=== PATIENT | female | born 1990 | race Caucasian/White ===

== ENCOUNTER 2017-11-12 08:07 | Emergency (ER) | payer SELFPAY ==
[~2017-11-12 08:07] MED LIST: Sodium Chloride Irrig Solution 250 ML BOT ONE
[2017-11-12] MEDS ORDERED: Morphine 10 MG/ML VIAL ONE (08:33)
[2017-11-12] MEDS ORDERED: Lidocaine 1% 20 ML MDV ONE (08:33)
[2017-11-12] MEDS ORDERED: Triple Antibiotic Ointment 15 GM TUBE ONE (09:30)
[2017-11-12] MEDS ORDERED: Triple Antibiotic Oint 1 GM Packet ONE (09:30)
== END 2017-11-12 09:45 | disposition home or self-care (01) ==
LOC: MADERS 08:07
DX: S61.411A Laceration without foreign body of right hand, initial encounter (principal); Z79.899 Other long term (current) drug therapy; W26.0XXA Contact with knife, initial encounter; Y93.G1 Activity, food preparation and clean up; Y92.009 Unspecified place in unspecified non-institutional (private) residence as the place of occurrence of the external cause
CPT/HCPCS: 12002; 96372; J2001; J2270